=== PATIENT | male | born 1935 | race Asian ===

== ENCOUNTER 2017-02-18 11:16 | Inpatient (IN) | payer MEDICARE ==
[~2017-02-18] VITALS: Ht 185.4 cm; Wt 71.3 kg
[~2017-02-18 11:16] MED LIST: DEXAMETHASONE 4 MG/ML, 5ML ONE; GLYCOPYRROLATE 0.2MG/1ML ONE; NEOSTIGMINE 1 MG/ML, 10ML ONE; ONDANSETRON 2MG/ML, 2ML ONE; PROPOFOL 10 MG/ML, 20ML ONE; ROCURONIUM 10 MG/ML ONE
[2017-02-18] MEDS ORDERED: LOVA40TA2 PO (11:50)
[2017-02-18] MEDS ORDERED: GABA300C10 PO (11:50)
[2017-02-18] MEDS ORDERED: REPA2TAB7 PO (11:50)
[2017-02-18] MEDS ORDERED: ASCO500T8 PO (11:50)
[2017-02-18] MEDS ORDERED: METF500T4 PO (11:50)
[2017-02-18] MEDS ORDERED: NIAC500T85 PO (11:50)
[2017-02-18] MEDS ORDERED: TRIA10PO2 TP (11:50)
[2017-02-18] MEDS ORDERED: ASPI-515 PO (11:50)
[2017-02-18] MEDS ORDERED: LISI-170 PO (11:50)
[2017-02-18] MEDS ORDERED: OMEP-110 PO (11:51)
[2017-02-18] MEDS ORDERED: SODIUM CHLORIDE FLUSH 10ML SYR IVF ONE (12:00)
[2017-02-18 12:32] LABS: ASPARTATE AMINO TRANSFERASE 9 U/L (15-37); BLOOD UREA NITROGEN 26 mg/dL (7-18)
[2017-02-18 12:37] LABS: IS PT STATUS REG ER OR PRE ER? YES
[2017-02-18] MEDS ORDERED: SODIUM CHLORIDE 0.9% 1,000 ML IV ONE (13:20)
[2017-02-18] MEDS ORDERED: SODIUM CHLORIDE FLUSH 10ML SYR IVF PRN (13:30)
[2017-02-18] MEDS ORDERED: POLYETHYLENE GLYCOL 17 GM PACKET PO PRN (14:00)
[2017-02-18] MEDS ORDERED: LABETALOL 5MG/ML, 20ML IVPush PRN (14:00)
[2017-02-18] MEDS ORDERED: morphine SULFATE 10 MG/ML, 1ML IVPush PRN (14:00)
[2017-02-18] MEDS ORDERED: ONDANSETRON 2MG/ML, 2ML IVPush PRN ×2 (14:00→15:30)
[2017-02-18] MEDS ORDERED: ACETAMINOPHEN 325 MG TABLET PO PRN ×3 (14:00→20:00)
[2017-02-18] MEDS ORDERED: BUPIVACAINE/PF-EPI 0.5% 1:200K ONE (15:22)
[2017-02-18] MEDS ORDERED: THROMBIN 5,000 UNIT VIAL TP ONE (15:22)
[2017-02-18] MEDS ORDERED: BACITRACIN 50,000 UNIT ONE (15:23)
[2017-02-18] MEDS ORDERED: CEFUROXIME 1.5 GM ONE (15:23)
[2017-02-18] MEDS ORDERED: EPHEDRINE 50 MG/ML, 1ML IVPush PRN (15:30)
[2017-02-18] MEDS ORDERED: hydrALAzine 20 MG/ML, 1ML IV PRN (15:30)
[2017-02-18] MEDS ORDERED: FENTANYL PF 100 MCG/2ML IV PRN (15:30)
[2017-02-18] MEDS ORDERED: OXYcodone 5 MG/5 ML ORAL.SOL UDC PO PRN (15:30)
[2017-02-18] MEDS ORDERED: ALBUTEROL SULFATE 2.5 MG/3 ML NPPB PRN (15:30)
[2017-02-18] MEDS ORDERED: METOPROLOL 1 MG/ML, 5ML IV PRN (15:30)
[2017-02-18] MEDS ORDERED: LABETALOL 5MG/ML, 20ML IV PRN (15:30)
[2017-02-18] MEDS ORDERED: HYDROmorphone 1 MG/ML, 1ML IV PRN (15:30)
[2017-02-18 15:32] VITALS: BP 155/77
[2017-02-18] MEDS ORDERED: FENTANYL PF 250 MCG/5ML ONE (16:23)
[2017-02-18] MEDS ORDERED: MIDAZOLAM 1 MG/ML, 2ML ONE (18:22)
[2017-02-18] MEDS: LEVETIRACETAM 1,000 MG in SODIUM CHLORIDE 0.9% 100 ML IV SCH (18:25)
[2017-02-18] MEDS ORDERED: LEVETIRACETAM 1,000 MG in SODIUM CHLORIDE 0.9% 100 ML IV ONE (18:30)
[2017-02-18] MEDS ORDERED: MIDAZOLAM 1 MG/ML, 2ML IVPush PRN (18:30)
[2017-02-18] MEDS: SODIUM CHLORIDE 0.9% 1,000 ML IV SCH ×2 (19:43→23:59)
[2017-02-18] MEDS ORDERED: ONDANSETRON 2MG/ML, 2ML IV PRN (20:00)
[2017-02-18] MEDS ORDERED: BISACODYL 10 MG SUPP PR PRN (20:00)
[2017-02-18] MEDS ORDERED: MAGNESIUM HYDROXIDE 8%, 30ML UDC PO PRN (20:00)
[2017-02-18] MEDS ORDERED: NS + 20MEQ KCL 1,000 ML IV SCH (20:00)
[2017-02-18] MEDS ORDERED: ACETAMINOPHEN 650 MG SUPP PR PRN (20:00)
[2017-02-18] MEDS: ENALAPRILAT 1.25 MG/ML, 2ML IV SCH (20:00)
[2017-02-18] MEDS ORDERED: OXYcodone/APAP 5/325MG TABLET PO PRN (20:00)
[2017-02-18] MEDS: CEFUROXIME 1.5 GM in SODIUM CHLORIDE 0.9% 50 ML IVPB SCH (21:00)
[2017-02-18] MEDS: FAMOTIDINE 20 MG/2 ML IVPush SCH (21:01)
[2017-02-18] MEDS: LOVASTATIN 40 MG TABLET PO SCH (21:01)
[2017-02-19] MEDS: CEFUROXIME 1.5 GM in SODIUM CHLORIDE 0.9% 50 ML IVPB SCH ×3 (03:49→21:26)
[2017-02-19] MEDS: ENALAPRILAT 1.25 MG/ML, 2ML IV SCH ×7 (03:50→23:30)
[2017-02-19 04:00] VITALS: BP 144/51
[2017-02-19 04:26] LABS: BLOOD UREA NITROGEN 16 mg/dL (7-18)
[2017-02-19 04:31] LABS: ASPARTATE AMINO TRANSFERASE 15 U/L (15-37)
[2017-02-19] MEDS ORDERED: OMEPRAZOLE 20 MG CAPSULE.DR PO SCH (07:30)
[2017-02-19] MEDS ORDERED: metFORMIN 500 MG TABLET PO SCH (08:00)
[2017-02-19] MEDS ORDERED: REPAGLINIDE 2 MG TABLET PO SCH (09:00)
[2017-02-19] MEDS ORDERED: SENNA/DOCUSATE TABLET PO SCH (09:00)
[2017-02-19] MEDS ORDERED: NIACIN 500 MG TABLET.ER PO SCH (09:00)
[2017-02-19] MEDS: TRIAMCINOLONE CRM 0.1%, 15GM TP SCH (09:00)
[2017-02-19] MEDS: FAMOTIDINE 20 MG/2 ML IVPush SCH ×2 (10:31→21:26)
[2017-02-19] MEDS: SENNA/DOCUSATE TABLET PO SCH (10:31)
[2017-02-19] MEDS: HYDROcodone/APAP 5/325 TABLET PO PRN ×2 (10:31→23:50)
[2017-02-19] MEDS: GABAPENTIN 100 MG CAPSULE PO SCH (10:31)
[2017-02-19] MEDS: LISINOPRIL 20 MG TABLET PO SCH (10:31)
[2017-02-19] MEDS: SODIUM CHLORIDE 0.9% 1,000 ML IV SCH ×2 (11:15→21:26)
[2017-02-19] MEDS: INSULIN ASPART 100 UNITS/ML, PEN SQ-INSULIN SCH ×3 (11:22→21:25)
[2017-02-19] MEDS: DEXAMETHASONE 4 MG/ML, 1ML IV SCH ×2 (17:50→23:30)
[2017-02-19] MEDS: LEVETIRACETAM 1,000 MG in SODIUM CHLORIDE 0.9% 100 ML IV SCH (18:20)
[2017-02-19] MEDS: LOVASTATIN 40 MG TABLET PO SCH (21:26)
[2017-02-20 04:00] VITALS: BP 116/44
[2017-02-20] MEDS: ENALAPRILAT 1.25 MG/ML, 2ML IV SCH ×5 (04:00→20:49)
[2017-02-20] MEDS: CEFUROXIME 1.5 GM in SODIUM CHLORIDE 0.9% 50 ML IVPB SCH ×3 (04:47→20:48)
[2017-02-20] MEDS: LEVETIRACETAM 1,000 MG in SODIUM CHLORIDE 0.9% 100 ML IV SCH ×2 (05:54→18:10)
[2017-02-20] MEDS: DEXAMETHASONE 4 MG/ML, 1ML IV SCH ×3 (05:54→17:25)
[2017-02-20] MEDS: TRIAMCINOLONE CRM 0.1%, 15GM TP SCH (09:00)
[2017-02-20] MEDS: SENNA/DOCUSATE TABLET PO SCH (09:06)
[2017-02-20] MEDS: FAMOTIDINE 20 MG/2 ML IVPush SCH (09:06)
[2017-02-20] MEDS: GABAPENTIN 100 MG CAPSULE PO SCH (09:06)
[2017-02-20] MEDS: INSULIN ASPART 100 UNITS/ML, PEN SQ-INSULIN SCH ×4 (09:06→20:50)
[2017-02-20] MEDS: LISINOPRIL 20 MG TABLET PO SCH (09:07)
[2017-02-20] MEDS: SODIUM CHLORIDE 0.9% 1,000 ML IV SCH ×2 (09:08→18:10)
[2017-02-20 19:15] VITALS: BP 134/116
[2017-02-20] MEDS: LOVASTATIN 40 MG TABLET PO SCH (20:49)
[2017-02-20] MEDS: FAMOTIDINE 20 MG TABLET PO SCH (20:49)
[2017-02-20] MEDS: HYDROcodone/APAP 5/325 TABLET PO PRN (20:50)
[2017-02-21] MEDS: HYDROcodone/APAP 5/325 TABLET PO PRN ×5 (01:33→20:50)
[2017-02-21] MEDS: CEFUROXIME 1.5 GM in SODIUM CHLORIDE 0.9% 50 ML IVPB SCH ×3 (03:55→21:41)
[2017-02-21 04:00] VITALS: BP 130/72
[2017-02-21] MEDS: ENALAPRILAT 1.25 MG/ML, 2ML IV SCH ×4 (04:04→12:00)
[2017-02-21 04:44] LABS: BLOOD UREA NITROGEN 16 mg/dL (7-18)
[2017-02-21 04:47] LABS: ASPARTATE AMINO TRANSFERASE 14 U/L (15-37)
[2017-02-21] MEDS: DEXAMETHASONE 4 MG/ML, 1ML IV SCH ×5 (05:25→23:46)
[2017-02-21] MEDS: SODIUM CHLORIDE 0.9% 1,000 ML IV SCH ×2 (05:25→17:01)
[2017-02-21] MEDS: LEVETIRACETAM 1,000 MG in SODIUM CHLORIDE 0.9% 100 ML IV SCH ×2 (05:52→17:01)
[2017-02-21] MEDS: INSULIN ASPART 100 UNITS/ML, PEN SQ-INSULIN SCH ×4 (08:18→20:51)
[2017-02-21] MEDS: LISINOPRIL 20 MG TABLET PO SCH (08:41)
[2017-02-21] MEDS: FAMOTIDINE 20 MG TABLET PO SCH ×2 (08:41→20:50)
[2017-02-21] MEDS: SENNA/DOCUSATE TABLET PO SCH (08:41)
[2017-02-21] MEDS: TRIAMCINOLONE CRM 0.1%, 15GM TP SCH (08:42)
[2017-02-21] MEDS: GABAPENTIN 100 MG CAPSULE PO SCH (08:42)
[2017-02-21] MEDS: LOVASTATIN 40 MG TABLET PO SCH (20:50)
[2017-02-22] MEDS: HYDROcodone/APAP 5/325 TABLET PO PRN ×3 (01:14→18:26)
[2017-02-22] MEDS: SODIUM CHLORIDE 0.9% 1,000 ML IV SCH (03:09)
[2017-02-22 04:00] VITALS: BP 130/72
[2017-02-22] MEDS: CEFUROXIME 1.5 GM in SODIUM CHLORIDE 0.9% 50 ML IVPB SCH ×3 (04:02→20:22)
[2017-02-22 04:49] LABS: BLOOD UREA NITROGEN 17 mg/dL (7-18)
[2017-02-22 04:53] LABS: ASPARTATE AMINO TRANSFERASE 10 U/L (15-37)
[2017-02-22] MEDS: LEVETIRACETAM 1,000 MG in SODIUM CHLORIDE 0.9% 100 ML IV SCH ×2 (05:36→18:24)
[2017-02-22] MEDS: DEXAMETHASONE 4 MG/ML, 1ML IV SCH ×4 (05:38→23:30)
[2017-02-22] MEDS: FAMOTIDINE 20 MG TABLET PO SCH ×2 (09:00→20:54)
[2017-02-22] MEDS: LISINOPRIL 20 MG TABLET PO SCH (09:00)
[2017-02-22] MEDS: SENNA/DOCUSATE TABLET PO SCH (09:00)
[2017-02-22] MEDS: GABAPENTIN 100 MG CAPSULE PO SCH (09:00)
[2017-02-22] MEDS: TRIAMCINOLONE CRM 0.1%, 15GM TP SCH (09:00)
[2017-02-22] MEDS: INSULIN ASPART 100 UNITS/ML, PEN SQ-INSULIN SCH (09:02)
[2017-02-22] MEDS ORDERED: FENTANYL PF 250 MCG/5ML ONE (10:17)
[2017-02-22] MEDS ORDERED: FUROSEMIDE 20 MG/2 ML ONE (10:24)
[2017-02-22] MEDS ORDERED: BACITRACIN 50,000 UNIT ONE (10:24)
[2017-02-22] MEDS ORDERED: MANNITOL PMX 20% 500 ML ONE (10:24)
[2017-02-22] MEDS ORDERED: BUPIVACAINE/PF-EPI 0.5% 1:200K ONE (10:24)
[2017-02-22] MEDS ORDERED: THROMBIN 5,000 UNIT VIAL TP ONE (10:24)
[2017-02-22] MEDS ORDERED: SUCCINYLCHOLINE 20 MG/ML, 10ML ONE (10:29)
[2017-02-22] MEDS ORDERED: ONDANSETRON 2MG/ML, 2ML ONE (10:29)
[2017-02-22] MEDS ORDERED: CEFTRIAXONE 1,000 MG ONE ×2 (10:29→10:43)
[2017-02-22] MEDS ORDERED: DEXAMETHASONE 4 MG/ML, 1ML ONE (10:29)
[2017-02-22] MEDS ORDERED: PROPOFOL 10 MG/ML, 20ML ONE (10:29)
[2017-02-22] MEDS ORDERED: PHENYLEPHRINE 10 MG/ML ONE (10:29)
[2017-02-22] MEDS ORDERED: EPHEDRINE 50 MG/ML, 1ML ONE (10:29)
[2017-02-22] MEDS ORDERED: FENTANYL PF 100 MCG/2ML ONE (12:38)
[2017-02-22] MEDS: FENTANYL PF 100 MCG/2ML IV PRN ×2 (12:40→13:12)
[2017-02-22] MEDS ORDERED: ONDANSETRON 2MG/ML, 2ML IVPush PRN (13:00)
[2017-02-22] MEDS ORDERED: LABETALOL 5MG/ML, 20ML IV PRN ×2 (13:00→14:30)
[2017-02-22] MEDS ORDERED: HYDROmorphone 1 MG/ML, 1ML ONE (14:12)
[2017-02-22] MEDS: HYDROmorphone 2 MG/ML, 1ML IV PRN ×2 (14:16→21:12)
[2017-02-22] MEDS ORDERED: D5%-0.9% NACL 1,000 ML IV SCH (14:30)
[2017-02-22] MEDS ORDERED: hydrALAzine 20 MG/ML, 1ML IV PRN (14:30)
[2017-02-22] MEDS: INSULIN REGULAR 100 UNITS/ML, 3ML VIAL SQ-INSULIN SCH ×2 (16:27→20:51)
[2017-02-22] MEDS: D5%-0.9% NACL+KCL 20MEQ 1,000 ML IV SCH (18:31)
[2017-02-22] MEDS: LOVASTATIN 40 MG TABLET PO SCH (20:54)
[2017-02-23] MEDS: CEFUROXIME 1.5 GM in SODIUM CHLORIDE 0.9% 50 ML IVPB SCH ×3 (03:45→19:39)
[2017-02-23 04:00] VITALS: BP 145/72
[2017-02-23 04:59] LABS: BLOOD UREA NITROGEN 15 mg/dL (7-18)
[2017-02-23 05:02] LABS: ASPARTATE AMINO TRANSFERASE 6 U/L (15-37)
[2017-02-23] MEDS: LEVETIRACETAM 1,000 MG in SODIUM CHLORIDE 0.9% 100 ML IV SCH ×2 (06:10→17:45)
[2017-02-23] MEDS: DEXAMETHASONE 4 MG/ML, 1ML IV SCH ×4 (06:10→23:31)
[2017-02-23] MEDS: INSULIN REGULAR 100 UNITS/ML, 3ML VIAL SQ-INSULIN SCH ×4 (06:19→21:07)
[2017-02-23] MEDS: D5%-0.9% NACL+KCL 20MEQ 1,000 ML IV SCH (07:00)
[2017-02-23] MEDS: GABAPENTIN 100 MG CAPSULE PO SCH (08:16)
[2017-02-23] MEDS: FAMOTIDINE 20 MG TABLET PO SCH ×2 (08:16→21:06)
[2017-02-23] MEDS: LISINOPRIL 20 MG TABLET PO SCH (08:16)
[2017-02-23] MEDS: SENNA/DOCUSATE TABLET PO SCH (08:16)
[2017-02-23] MEDS: TRIAMCINOLONE CRM 0.1%, 15GM TP SCH (09:00)
[2017-02-23] MEDS: LACTATED RINGERS 1,000 ML IV SCH (15:56)
[2017-02-23] MEDS ORDERED: INSULIN ASPART 100 UNITS/ML, PEN SQ-INSULIN ONE (21:00)
[2017-02-23] MEDS: LOVASTATIN 40 MG TABLET PO SCH (21:06)
[2017-02-24] MEDS: LACTATED RINGERS 1,000 ML IV SCH (02:00)
[2017-02-24 04:00] VITALS: BP 120/60
[2017-02-24] MEDS: CEFUROXIME 1.5 GM in SODIUM CHLORIDE 0.9% 50 ML IVPB SCH ×3 (04:15→19:49)
[2017-02-24] MEDS: DEXAMETHASONE 4 MG/ML, 1ML IV SCH ×4 (05:30→22:51)
[2017-02-24] MEDS: LEVETIRACETAM 1,000 MG in SODIUM CHLORIDE 0.9% 100 ML IV SCH ×2 (05:31→18:24)
[2017-02-24 05:41] LABS: BLOOD UREA NITROGEN 18 mg/dL (7-18)
[2017-02-24] MEDS: INSULIN REGULAR 100 UNITS/ML, 3ML VIAL SQ-INSULIN SCH (07:00)
[2017-02-24] MEDS: TRIAMCINOLONE CRM 0.1%, 15GM TP SCH (09:00)
[2017-02-24] MEDS: FAMOTIDINE 20 MG TABLET PO SCH ×2 (09:40→21:19)
[2017-02-24] MEDS: GABAPENTIN 100 MG CAPSULE PO SCH (09:40)
[2017-02-24] MEDS: LISINOPRIL 20 MG TABLET PO SCH (09:42)
[2017-02-24] MEDS: SENNA/DOCUSATE TABLET PO SCH (09:42)
[2017-02-24] MEDS: INSULIN ASPART 100 UNITS/ML, PEN SQ-INSULIN SCH ×3 (12:03→21:19)
[2017-02-24] MEDS: LOVASTATIN 40 MG TABLET PO SCH (21:19)
[2017-02-25] MEDS: CEFUROXIME 1.5 GM in SODIUM CHLORIDE 0.9% 50 ML IVPB SCH ×3 (03:51→20:09)
[2017-02-25 04:00] VITALS: BP 147/68
[2017-02-25 04:43] LABS: BLOOD UREA NITROGEN 19 mg/dL (7-18)
[2017-02-25] MEDS: DEXAMETHASONE 4 MG/ML, 1ML IV SCH ×4 (05:03→23:43)
[2017-02-25] MEDS: LEVETIRACETAM 1,000 MG in SODIUM CHLORIDE 0.9% 100 ML IV SCH ×2 (05:37→18:08)
[2017-02-25] MEDS: INSULIN ASPART 100 UNITS/ML, PEN SQ-INSULIN SCH ×4 (06:25→21:05)
[2017-02-25] MEDS: TRIAMCINOLONE CRM 0.1%, 15GM TP SCH (09:00)
[2017-02-25] MEDS: SENNA/DOCUSATE TABLET PO SCH (09:16)
[2017-02-25] MEDS: LISINOPRIL 20 MG TABLET PO SCH (09:16)
[2017-02-25] MEDS: FAMOTIDINE 20 MG TABLET PO SCH ×2 (09:16→21:04)
[2017-02-25] MEDS: GABAPENTIN 100 MG CAPSULE PO SCH (09:16)
[2017-02-25] MEDS ORDERED: INSULIN DETEMIR 100 UNITS/ML, PEN SQ-INSULIN SCH ×2 (12:30→21:00)
[2017-02-25] MEDS: LOVASTATIN 40 MG TABLET PO SCH (21:04)
[2017-02-25] MEDS: INSULIN DETEMIR 100 UNITS/ML, PEN SQ-INSULIN SCH (21:05)
[2017-02-26] MEDS: CEFUROXIME 1.5 GM in SODIUM CHLORIDE 0.9% 50 ML IVPB SCH (03:46)
[2017-02-26 04:00] VITALS: BP 144/67
[2017-02-26] MEDS: DEXAMETHASONE 4 MG/ML, 1ML IV SCH ×4 (05:38→23:54)
[2017-02-26] MEDS: LEVETIRACETAM 1,000 MG in SODIUM CHLORIDE 0.9% 100 ML IV SCH ×2 (05:39→17:45)
[2017-02-26] MEDS: INSULIN ASPART 100 UNITS/ML, PEN SQ-INSULIN SCH ×4 (06:29→21:20)
[2017-02-26] MEDS: TRIAMCINOLONE CRM 0.1%, 15GM TP SCH (09:00)
[2017-02-26] MEDS: GABAPENTIN 100 MG CAPSULE PO SCH (10:01)
[2017-02-26] MEDS: LISINOPRIL 20 MG TABLET PO SCH (10:01)
[2017-02-26] MEDS: FAMOTIDINE 20 MG TABLET PO SCH ×2 (10:01→21:15)
[2017-02-26] MEDS: SENNA/DOCUSATE TABLET PO SCH (10:01)
[2017-02-26] MEDS: INSULIN DETEMIR 100 UNITS/ML, PEN SQ-INSULIN SCH ×2 (10:02→21:18)
[2017-02-26] MEDS: LOVASTATIN 40 MG TABLET PO SCH (21:15)
[2017-02-27 04:00] VITALS: BP 141/61
[2017-02-27 04:48] LABS: BLOOD UREA NITROGEN 28 mg/dL (7-18)
[2017-02-27] MEDS: LEVETIRACETAM 1,000 MG in SODIUM CHLORIDE 0.9% 100 ML IV SCH (05:33)
[2017-02-27] MEDS: DEXAMETHASONE 4 MG/ML, 1ML IV SCH (05:33)
[2017-02-27] MEDS: INSULIN ASPART 100 UNITS/ML, PEN SQ-INSULIN SCH ×4 (08:24→22:35)
[2017-02-27] MEDS: INSULIN DETEMIR 100 UNITS/ML, PEN SQ-INSULIN SCH ×2 (08:25→22:34)
[2017-02-27] MEDS: GABAPENTIN 100 MG CAPSULE PO SCH (08:35)
[2017-02-27] MEDS: FAMOTIDINE 20 MG TABLET PO SCH ×2 (08:35→19:56)
[2017-02-27] MEDS: LISINOPRIL 20 MG TABLET PO SCH (08:35)
[2017-02-27] MEDS: SENNA/DOCUSATE TABLET PO SCH (08:35)
[2017-02-27] MEDS: TRIAMCINOLONE CRM 0.1%, 15GM TP SCH (08:36)
[2017-02-27] MEDS: LEVETIRACETAM 500 MG TABLET PO SCH ×2 (08:36→19:56)
[2017-02-27] MEDS: DEXAMETHASONE 4 MG TABLET PO SCH ×3 (08:36→19:56)
[2017-02-27 11:59] VITALS: BP 118/66
[2017-02-27] MEDS: LOVASTATIN 40 MG TABLET PO SCH (19:56)
[2017-02-27 20:02] VITALS: BP 144/64
[2017-02-28 02:00] VITALS: BP 115/66
[2017-02-28 07:25] VITALS: BP 119/78
[2017-02-28] MEDS: INSULIN ASPART 100 UNITS/ML, PEN SQ-INSULIN SCH ×3 (08:03→16:00)
[2017-02-28] MEDS: LISINOPRIL 20 MG TABLET PO SCH (09:00)
[2017-02-28] MEDS: TRIAMCINOLONE CRM 0.1%, 15GM TP SCH (09:07)
[2017-02-28] MEDS: DEXAMETHASONE 4 MG TABLET PO SCH ×2 (09:19→16:00)
[2017-02-28] MEDS: LEVETIRACETAM 500 MG TABLET PO SCH (09:20)
[2017-02-28] MEDS: GABAPENTIN 100 MG CAPSULE PO SCH (09:20)
[2017-02-28] MEDS: SENNA/DOCUSATE TABLET PO SCH (09:21)
[2017-02-28] MEDS: FAMOTIDINE 20 MG TABLET PO SCH (09:21)
[2017-02-28] MEDS: INSULIN DETEMIR 100 UNITS/ML, PEN SQ-INSULIN SCH (09:23)
[2017-02-28] MEDS ORDERED: LEVE500T53 PO (09:49)
[2017-02-28] MEDS ORDERED: INSU100I18 SQ-INSULIN (09:49)
[2017-02-28] MEDS ORDERED: DEXA4TAB PO (09:49)
[2017-02-28 13:42] VITALS: BP 138/56
== END 2017-02-28 15:25 | DRG 25 ==
LOC: ED 13:10 → EDIP 13:20 → CCU 14:34 → ICU 02-20 06:34 → CCU 02-21 17:29 → 4NOR 02-27 11:53
PROVIDERS: ADMIT Internal Medicine; ATTEND Internal Medicine
PROC: 00C40ZZ Extirpation of Matter from Intracranial Subdural Space, Open Approach (ICD-10-PCS; principal; 2017-02-18 15:30)
PROC: 00C30ZZ Extirpation of Matter from Intracranial Epidural Space, Open Approach (ICD-10-PCS; 2017-02-22)
PROC: 00C40ZZ Extirpation of Matter from Intracranial Subdural Space, Open Approach (ICD-10-PCS; 2017-02-22)
DX: S06.5X0A Traumatic subdural hemorrhage without loss of consciousness, initial encounter (principal); N17.0 Acute kidney failure with tubular necrosis; G93.40 Encephalopathy, unspecified; E87.1 Hypo-osmolality and hyponatremia; R41.4 Neurologic neglect syndrome; R47.01 Aphasia; I10 Essential (primary) hypertension; E78.5 Hyperlipidemia, unspecified; R47.02 Dysphasia; E11.9 Type 2 diabetes mellitus without complications; E86.0 Dehydration; I45.10 Unspecified right bundle-branch block; W01.0XXA Fall on same level from slipping, tripping and stumbling without subsequent striking against object, initial encounter; Y93.89 Activity, other specified; Y92.89 Other specified places as the place of occurrence of the external cause; Y99.8 Other external cause status
CPT/HCPCS: 36415; 70450; 71010; 80048; 80053; 81003; 82607; 82746; 82947; 82962; 84443; 84484; 85025; 85610; 85730; 87081; 93005; 96360; C1713; C1729; J0696; J0697; J1100; J1170; J1815; J1953; J2250; J2405; J2704; J2710; J3010; J3480; J3490; 92523-GN; J0330; J1940; J2370; J7030; J7120; S0028

== ENCOUNTER → 2017-11-12 | Outpatient (CLI) | payer MEDICARE ==
[~2017-11-12] MED LIST changes: +ASCO500T8 PO; +ASPI-515 PO; +DEXA4TAB PO; -DEXAMETHASONE 4 MG/ML, 5ML ONE; +GABA300C10 PO; -GLYCOPYRROLATE 0.2MG/1ML ONE; +INSU100I18 SQ-INSULIN; +LEVE500T53 PO; +LISI-170 PO; +LOVA40TA2 PO; +METF500T4 PO; -NEOSTIGMINE 1 MG/ML, 10ML ONE; +NIAC500T85 PO; +OMEP-110 PO; -ONDANSETRON 2MG/ML, 2ML ONE; -PROPOFOL 10 MG/ML, 20ML ONE; +REPA2TAB7 PO; -ROCURONIUM 10 MG/ML ONE; +TRIA10PO2 TP
== END ==
LOC: CFH 17:03
PROVIDERS: ATTEND Internal Medicine
DX: M25.572 Pain in left ankle and joints of left foot (principal)